=== PATIENT | female | born 1955 | race Caucasian/White ===

== ENCOUNTER → 2016-07-17 | Day surgery (SDC) | payer BC ==
[~2016-07-17] VITALS: Ht 170.2 cm; Wt 68.0 kg
[~2016-07-17] MED LIST: EFFEXOR XR150 MG PO; MELOXICAM15 MG PO; NEURONTIN300 MG PO; OMEPRAZOLE20 MG PO; TENORMIN25 M1 PO; TRAMADOL HYDROC50 MG PO; XANAX0.25 MG PO
[2016-07-17 11:00] VITALS: BP 108/70
== END | disposition home or self-care (01) | DRG 951 ==
LOC: ENDO 07:00
PROVIDERS: ATTEND Surgery
PROC: 0DBN8ZX Excision of Sigmoid Colon, Via Natural or Artificial Opening Endoscopic, Diagnostic (ICD-10-PCS; principal; 2016-07-17)
DX: Z12.11 Encounter for screening for malignant neoplasm of colon (principal); F32.9 Major depressive disorder, single episode, unspecified; D12.5 Benign neoplasm of sigmoid colon; K57.30 Diverticulosis of large intestine without perforation or abscess without bleeding; J44.9 Chronic obstructive pulmonary disease, unspecified; K21.9 Gastro-esophageal reflux disease without esophagitis; F17.200 Nicotine dependence, unspecified, uncomplicated; Z87.11 Personal history of peptic ulcer disease

== ENCOUNTER 2021-08-16 06:58 | Day surgery (SDC) | payer MEDICARE, OTHER ==
[~2021-08-16] VITALS: Ht 165.1 cm; Wt 58.1 kg
[~2021-08-16 06:58] MED LIST changes: +LATANOPROST0.005 % OP; +LORTAB5 PO; +OMEPRAZOLE DR40 MG PO; +RENFLEXIS100 MG
[2021-08-16] MEDS ORDERED: PREVACID30 M3 PO (08:47)
[2021-08-16 09:37] VITALS: BP 105/68
== END 2021-08-16 09:25 | disposition home or self-care (01) ==
LOC: ENDO 06:58 → ORM 08:00 → ENDO 09:25
PROVIDERS: ATTEND Surgery
PROC: 0DJD8ZZ Inspection of Lower Intestinal Tract, Via Natural or Artificial Opening Endoscopic (ICD-10-PCS; principal; 2021-08-16)
PROC: 0DB78ZX Excision of Stomach, Pylorus, Via Natural or Artificial Opening Endoscopic, Diagnostic (ICD-10-PCS; 2021-08-16)
DX: Z12.11 Encounter for screening for malignant neoplasm of colon (principal); K25.9 Gastric ulcer, unspecified as acute or chronic, without hemorrhage or perforation; K21.9 Gastro-esophageal reflux disease without esophagitis; M06.9 Rheumatoid arthritis, unspecified; Z87.11 Personal history of peptic ulcer disease; Z86.010 Personal history of colon polyps

== ENCOUNTER 2022-01-01 07:00 | Day surgery (SDC) | payer MEDICARE, OTHER ==
[~2022-01-01] VITALS: Ht 165.1 cm; Wt 56.7 kg
[~2022-01-01 07:00] MED LIST changes: +PREVACID30 M3 PO
[2022-01-01 09:12] VITALS: BP 98/61
== END 2022-01-01 09:00 | disposition home or self-care (01) ==
LOC: ENDO 07:00
PROVIDERS: ATTEND Surgery
PROC: 0DB98ZX Excision of Duodenum, Via Natural or Artificial Opening Endoscopic, Diagnostic (ICD-10-PCS; principal; 2022-01-01)
PROC: 0DB78ZX Excision of Stomach, Pylorus, Via Natural or Artificial Opening Endoscopic, Diagnostic (ICD-10-PCS; 2022-01-01)
DX: K29.60 Other gastritis without bleeding (principal); K29.80 Duodenitis without bleeding; M06.9 Rheumatoid arthritis, unspecified; F17.200 Nicotine dependence, unspecified, uncomplicated; Z79.899 Other long term (current) drug therapy; Z87.11 Personal history of peptic ulcer disease; Z86.010 Personal history of colon polyps